=== PATIENT | female | born 1975 | race Caucasian/White ===

== ENCOUNTER 2017-04-24 18:23 | Emergency (ER) | payer BC ==
[2017-04-24 18:32] VITALS: BP 129/90; BMI 28.6
[2017-04-24] MEDS ORDERED: ASPIRIN 81 MG CHEWTAB ONE (18:51)
--- NOTE | 2017-04-24 18:54 | DR.GENAD ---
HPI - PCP Primary Care Physician: MARSHALL - Complaint/Symptoms Chief Complaint Doctors Comments: Pain comes and goes, lasts only seconds. Nonexertional Chief Complaint:: PT STATES" I BEEN HAVIG CHEST PAIN IN MY LT BREAST THRU TO MY BACK AND DOWN MY LT ARM FOR ABOUT 2 WEEKS MY DAD HAS AN EXTENSIVE HX" - Source History Provided: Patient - Mode of Arrival Mode of Arrival: Ambulatory - Timing Onset of Chief Complaint: 04/14/17 PMH - PMH Past Medical History: Yes (no prior cardiac testing ) Past Medical History: Depression Past Surgical History: Yes Past Surgical History Comment: KITA DIOR BREAST LIFT - Family History History of Family Medical Conditions: Yes Family Medical History: Coronary Artery Disease, Heart Failure, Hypertension - Social History Does any household member use tobacco: No Alcohol Use: None Do you use any recreational Drugs:: No Lives With: Family Lives Where: Home - infectious screening In the last 2 months have you had wt loss of >10#?: NO Have you had fever, night sweats or hemotysis?: No Have you traveled outside the country in the last 6 months?: No Isolation: Standard ROS - Review of Systems Constitutional: Fatigue Eyes: No Symptoms Reported ENTM: No Symptoms Reported Respiratoy: No Symptoms Reported Cardiovascular: See HPI, Chest Pain. negative: Edema, Palpitations, Syncope, Cyanosis Gastrointestinal/Abdominal: No Symptoms Reported Genitourinary: No Symptoms Reported Neurological: No Symptoms Reported, Depressed (hx depression) Musculoskeletal: No Symptoms Reported Integumentary: No Symptoms Reported Hematologic/Lymphatic: No Symptoms Reported Endocrine: No Symptoms Reported Psychiatric: No Symptoms Reported All Other Systems: Reviewed and Negative PE - Vital Signs Vitals: Temperature 99.8 F Pulse Rate 82 Respiratory Rate 18 Blood Pressure 129/90 O2 Sat by Pulse Oximetry 98 - General Limitations: No Limitations General Appearance: Alert, In No Apparent Distress, Anxious. negative: Appears Intoxicated, Lethargic, Obtunded, In Distress, Obese, Cachectic - Head Head Exam: Normal Inspection - Eyes Eye exam: Normal Appearance - ENT External Ear Exam: Normal External Inspection - Neck Neck Exam: Normal Inspection - Chest Chest Inspection: Normal Inspection, Symmetric Chest Wall Rise. negative: Rash - Respiratory Respiratory Exam: Normal Lung Sounds Bilat. negative: Accessory Muscle Use, Chest Wall Tenderness, Respiratory Distress, Stridor Respiratory Exam: Bilateral Clear to Auscultation - Cardiovascular Cardiovascular Exam: Regular Rate, Normal Rhythm, Normal Heart Sounds. negative : Bradycardia, Tachycardia, Irregular Rhythm, Systolic Murmur, Diastolic Murmur - Abdominal Exam Abdominal Exam: Normal Bowel Sounds, Soft. negative: Tenderness - Extremities Extremities Exam: Normal Inspection. negative: Edema - Neurologic Neurological Exam: Alert, Oriented X3 - Psychiatric Psychiatric Exam: Normal Affect, Normal Mood - Skin Skin Exam: Warm, Dry, Intact ROR - Labs Reviewed Laboratory Results Reviewed?: Yes (cardiacs all normal) Result Diagrams: 04/24/17 18:57 04/24/17 18:57 Laboratory: WBC 10.2 X10^3/uL (3.6-10.0) H 04/24/17 18:57 RBC 4.74 X10^6/uL (3.5-5.4) 04/24/17 18:57 Hgb 14.0 g/dL (12.0-16.0) 04/24/17 18:57 Hct 40.9 % (36.0-47.0) 04/24/17 18:57 MCV 86.4 fL (80.0-100.0) 04/24/17 18:57 MCH 29.5 pg (27.0-34.0) 04/24/17 18:57 MCHC 34.1 g/dL (33.0-35.0) 04/24/17 18:57 RDW 14.0 % (11.6-16.5) 04/24/17 18:57 Plt Count 231 X10^3/uL (150.0-450.0) 04/24/17 18:57 MPV 9.5 fL (7.4-11.0) 04/24/17 18:57 Neut % 64.3 % (42.0-75.0) 04/24/17 18:57 Lymph % 26.7 % (21.0-51.0) 04/24/17 18:57 [place] % 6.6 % (0.0-13.0) 04/24/17 18:57 Eos % 1.2 % (0.9-2.9) 04/24/17 18:57 Baso % 1.2 % (0.2-1.0) H 04/24/17 18:57 Neut # 6.6 x10^3/uL (2.2-4.8) H 04/24/17 18:57 Lymph # 2.7 X10^3/uL (1.3-2.9) 04/24/17 18:57 [place] # 0.7 x10^3/uL (0.3-0.8) 04/24/17 18:57 Eos # 0.1 x10^3/uL (0.0-0.2) 04/24/17 18:57 Baso # 0.1 X10^3/uL (0.0-0.1) 04/24/17 18:57 Absolute Nucleated RBC 0.0 /100WBC 04/24/17 18:57 INR Target Range - 04/24/17 18:57 INR 0.97 (0.8-1.3) 04/24/17 18:57 PTT 25.8 SECONDS (22.9-36.5) 04/24/17 18:57 PTT Comment - 04/24/17 18:57 D-Dimer < 100 ng/mL (0-400) 04/24/17 18:57 Sodium 140 mmol/L (136-145) 04/24/17 18:57 Corrected Sodium TNP 04/24/17 18:57 Potassium 4.3 mmol/L (3.5-5.1) 04/24/17 18:57 Chloride 104 mmol/L (98-107) 04/24/17 18:57 Carbon Dioxide 32.1 mmol/L (21-32) H 04/24/17 18:57 BUN 11 mg/dL (7-18) 04/24/17 18:57 Creatinine 0.92 mg/dL (0.55-1.02) 04/24/17 18:57 Est GFR (MDRD) Af Amer > 60 (>60) 04/24/17 18:57 Est GFR (MDRD) Non-Af > 60 (>60) 04/24/17 18:57 Glucose 92 mg/dL (65-99) 04/24/17 18:57 Calcium 8.9 mg/dL (8.5-10.1) 04/24/17 18:57 Corrected Calcium TNP 04/24/17 18:57 Magnesium 1.7 mg/dL (1.7-2.9) 04/24/17 18:57 Total Bilirubin 0.20 mg/dL (0.2-1.0) 04/24/17 18:57 AST 18 Units/L (15-37) 04/24/17 18:57 ALT 20 Units/L (12-78) 04/24/17 18:57 Alkaline Phosphatase 58 Units/L (46-116) 04/24/17 18:57 Creatine Kinase 119 Units/L (26-192) 04/24/17 18:57 CK-MB (CK-2) 1.3 ng/mL (0-4.0) 04/24/17 18:57 CK/CKMB % Calc 1.1 % (<4) 04/24/17 18:57 Troponin I < 0.02 ng/mL (0-1.5) 04/24/17 18:57 Total Protein 7.4 g/dL (6.4-8.2) 04/24/17 18:57 Albumin 3.8 g/dL (3.4-5.0) 04/24/17 18:57 Globulin 3.6 g/dL (2.5-4.5) 04/24/17 18:57 Albumin/Globulin Ratio 1.1 Ratio (1.1-2.1) 04/24/17 18:57 - XRAY XRAY Interpreted by: Radiologist XRAY Findings: nothing acute on CXR - Diagnosis Discharge Problem: Non-cardiac chest pain - Discharge Plan Disposition: 01 HOME, SELF-CARE Condition: Stable - Follow ups/Referrals Follow ups/Referrals: MIKAYLA OLIVARES [Primary Care Provider] - 3 days - Instructions Additional Notes - Additional Notes Additional Notes: Urged pt to f/u PCP re: addtl stress testing etc to finish cardiac w/u
[2017-04-24 19:05] LABS: BASOPHILS # (AUTO) 0.1 X10^3/uL (0.0-0.1); BASOPHILS % (AUTO) 1.2 % (0.2-1.0); EOSINOPHILS # (AUTO) 0.1 x10^3/uL (0.0-0.2); EOSINOPHILS % (AUTO) 1.2 % (0.9-2.9); HEMATOCRIT 40.9 % (36.0-47.0); LYMPHOCYTES # (AUTO) 2.7 X10^3/uL (1.3-2.9); LYMPHOCYTES % (AUTO) 26.7 % (21.0-51.0); MEAN CORPUSCULAR HEMOGLOBIN 29.5 pg (27.0-34.0); MEAN CORPUSCULAR HGB CONC 34.1 g/dL (33.0-35.0); MEAN CORPUSCULAR VOLUME 86.4 fL (80.0-100.0); MEAN PLATELET VOLUME 9.5 fL (7.4-11.0); MONOCYTES # (AUTO) 0.7 x10^3/uL (0.3-0.8); MONOCYTES % (AUTO) 6.6 % (0.0-13.0); NEUTROPHILS # (AUTO) 6.6 x10^3/uL (2.2-4.8); NEUTROPHILS % (AUTO) 64.3 % (42.0-75.0); PLATELET COUNT 231 X10^3/uL (150.0-450.0); RED BLOOD COUNT 4.74 X10^6/uL (3.5-5.4); WHITE BLOOD COUNT 10.2 X10^3/uL (3.6-10.0)
--- NOTE | 2017-04-24 19:05 | RAD ---
Chest, AP portable Indication: Chest pain Comparison: None Findings: The upper portion of the chest was excluded. The heart size is normal. The lungs are essent ially clear without dense infiltrate, pleural effusion, or pneumothorax. Impression: No acute chest process. Reported By:
[2017-04-24 19:23] LABS: BLOOD UREA NITROGEN 11 mg/dL (7-18); CALCIUM 8.9 mg/dL (8.5-10.1); CARBON DIOXIDE 32.1 mmol/L (21-32); CHLORIDE 104 mmol/L (98-107); CREATININE 0.92 mg/dL (0.55-1.02); SODIUM 140 mmol/L (136-145); TROPONIN I < 0.02 ng/mL (0-1.5); eGFR BLACK RACES > 60 (>60); eGFR NON BLACK RACES > 60 (>60)
[2017-04-24 19:28] LABS: ALANINE AMINOTRANSFERASE 20 Units/L (12-78); ALBUMIN 3.8 g/dL (3.4-5.0); ALKALINE PHOSPHATASE 58 Units/L (46-116); ASPARTATE AMINO TRANSFERASE 18 Units/L (15-37); CKMB % 1.1 % (<4); CREATINE KINASE 119 Units/L (26-192); CREATINE KINASE MB 1.3 ng/mL (0-4.0); MAGNESIUM 1.7 mg/dL (1.7-2.9); TOTAL PROTEIN 7.4 g/dL (6.4-8.2)
[2017-04-25] MEDS ORDERED: ASPIRIN 81 MG CHEWTAB PO ONE ×2 (18:51→19:01)
== END 2017-04-24 20:16 | disposition home or self-care (01) ==
LOC: ER 18:39
DX: R07.89 Other chest pain (principal)
CPT/HCPCS: 36415; 71045; 80053; 82550; 82553; 83735; 84484; 85025; 85378; 85610; 85730; 93005; 93010; 96365; 99283; A4222